=== PATIENT | male | born 1965 | race Two or more races ===

== ENCOUNTER → 2024-06-26 | Outpatient (BNVA) | payer SELFPAY | END | disposition home or self-care (01) | PROVIDERS: PCP Nurse Practitioner Primary Care; Referring Provider Nurse Practitioner Primary Care; Visit Provider Nurse Practitioner Primary Care | DX: J18.9 Pneumonia, unspecified organism (principal); Z01.810 Encounter for preprocedural cardiovascular examination | CPT/HCPCS: 87804; 87811; 93005; 96372; 99203; A4216; J0696; A9270 ==